=== PATIENT | male | born 1985 | race Caucasian/White ===

== ENCOUNTER 2018-12-15 11:55 | Observation (INO) | payer OTHER, SELFPAY ==
[2018-12-15 11:56] VITALS: BP 130/78; PULSE 101; RESP 18; TEMP 36.6; O2SAT 99; BMI 28.5
[2018-12-15] MEDS: Bupivacaine 0.5% PF 10 ML VIAL INFILT (12:05)
--- NOTE | 2018-12-15 12:13 | RAD_ITS ---
STUDY: X-RAY - LEFT HAND REASON FOR EXAM: Male, 33 years old. Laceration injury. TECHNIQUE: 3 view(s) of the hand. COMPARISON: None. FINDINGS: Normal radiocarpal articulation. Normal distal radioulnar joint. Normal visualized carpal bones. Normal carpal articulations Normal carpometacarpal articulation of the thumb. Normal second through fifth carpometacarpal joints. Normal metacarpi. Normal metacarpophalangeal joint of the thumb. Normal interphalangeal joint of the thumb. Normal proximal and distal phalanges of the thumb. Normal metacarpophalangeal joints of the second through fifth fingers. Normal proximal and distal interphalangeal joints of the second through fifth fingers. There has been amputation of distal pharynx of the third digit. Avulsion fracture of the tuft of the distal phalanx of the fourth digit. Soft tissue laceration. RAD/Hand Min 3 Views IMPRESSION: Amputation of the distal phalanx of the third digit with an avulsion fracture of the tuft of the circumference of the fourth digit with overlying soft tissue injury. Electronically Signed: Rob Marquez, at 12:46 EDT , Service support ,
[2018-12-15 12:22] LABS: Absolute Lymphocyte Count 1.51 X10^3/uL (0.83-4.51); Absolute Neutrophil Count 2.5 X10^3/uL (2.0-7.7); Basophil# 0.03 X10^3/uL; Basophil% 0.6 % (0-1); Eosinophil# 0.06 X10^3/uL; Eosinophils% 1.3 % (0-5); Hematocrit 41.7 % (40-54); Hemoglobin 14.1 g/dL (13.0-16.5); Lymphocyte # 1.51 X10^3/ul (4.0); Lymphocyte % 31.7 % (19-41); Mean Corp Hgb Conc 33.8 g/dL (32-36); Mean Corpuscular Hgb 30.5 pg (27.0-32.0); Mean Corpuscular Volume 90.1 fL (80-94); Mean Platelet Vol. 9.6 fl (6.2-12.0); Monocyte# 0.61 X10^3/uL; Monocyte% 12.8 % (0-10); NRBC Flagged by Analyzer 0 % (0-5); Neutrophil # 2.54 X10^3/uL (2.7-7.7); Neutrophil % 53.4 % (47-70); Platelet Count 218 K/mm3 (150-450); RBC Distribution Width CV 12.6 % (11.6-14.6); RBC Distribution Width SD 41.4 fl (35.1-43.9); Red Blood Count 4.63 M/mm3 (4.6-6.2); White Blood Count 4.8 K/mm3 (4.4-11.0)
[2018-12-15] MEDS: Diphth,Pertuss(Acell),Tet Vac 0.5 ML Vial IM (12:27)
[2018-12-15 12:32] LABS: Anion Gap 8 (5-15); BUN 12 mg/dL (7-18); BUN/Creat Ratio 12.2 RATIO (10-20); Calcium,Total 8.8 mg/dL (8.5-10.1); Chloride 102 mmol/L (98-107); Creatinine, Serum 0.99 mg/dL (0.70-1.30); EST Glomerular Filtration Rate 94 mL/min (>60); Est Glom Filt Rate - Afr Amer 113 mL/min (>60); Estimated Creatinine Clearance 115.15 ml/min; Glucose 96 mg/dL (74-106); Potassium 3.5 mmol/L (3.5-5.1); Sodium Level 137 mmol/L (136-145)
[2018-12-15] MEDS: Cefazolin 1 GM/50 ML BAG IV ×2 (12:52→21:08)
[2018-12-15 12:57] VITALS: BP 126/98; PULSE 114; RESP 16; O2SAT 99
[2018-12-15 13:13] VITALS: BMI 28.8; BMI 28.9
[2018-12-15 13:17] VITALS: BP 121/81; PULSE 60; RESP 16; TEMP 36.5; O2SAT 99
[2018-12-15 13:19] VITALS: BP 127/65
--- NOTE | 2018-12-15 13:38 | ED.VIS.UPPEX ---
History of Present Illness Chief Complaint: Laceration Narrative: Patient presenting secondary to a finger amputation. Patient was using a table saw when he suffered an injury to his left long digit and ring finger. He is right-hand dominant. Pain is moderate to severe worse with palpation. Bleeding was controlled with pressure and elevation. Tetanus status is unknown. Past Medical History - Allergies and Home Meds Allergies/Adverse Reactions: Allergies No Known Allergies Allergy (Verified 12/15/18 11:59) Past Medical History: None Smoking Status: Current every day smoker Review of Systems All systems negative except as indicated Skin: Reports: Wounds Physical Exam Vital Signs/Narrative: Vital Signs Temp Pulse Resp BP Pulse Ox 12/15/18 12:57 114 H 16 126/98 H 99 12/15/18 11:56 97.9 F 101 H 18 130/78 H 99 Left Hand: - - Examination of the patient's left hand demonstrates evidence of amputation of the distal portion of the long digit. The amputation goes up to the level of the DIP, but does not seem to include the DIP. Patient brought his amputated digit in a bag, and this seems to be consistent with the level of amputation on his hand. Over the ulnar portion of the patient's ring finger, there is skin avulsion of the fat pad with some exposed bone. Normal flexion and extension of the fingers. General: Well nourished, Well developed Head: Normocephalic, Atraumatic ENT: No Trauma, Moist Mucous Membranes Neck: Nontender, Full ROM Cardiovascular: Regular rate, Regular rhythm, No murmurs Respiratory: No distress, CTA bilaterally, Chest nontender Skin: Normal color, No rash Neurological: Alert, Oriented x3, Cranial nerves II-XII grossly intact, Normal Strength, Normal Sensation Psychological: Normal affect Diagnostic/Tx/Re-eval - Medical Decision Making Patient presented secondary to a finger amputation. Tetanus status was updated. I did a digital block on the patient's long and ring fingers using a total of 5 cc of bupivacaine for each finger. Finger tourniquet was placed on the patient's long digit, and it was irrigated and scrubbed. There appears to be some leftover proximal portion of the patient's distal phalanx. The wound on the patient's ring finger was also irrigated. Wet-to-dry dressings were placed over top of these by the nursing staff, and the tourniquet was released. X-rays obtained showed evidence that the patient has complete avulsion of the distal phalanx of the long digits with just a small portion of it being left over in the soft tissue. I discussed patient's case with plastic surgery, the patient will be admitted for revision amputation to be performed tomorrow. Disposition: Admit to Med Surg ED Disposition - Plan for ED Patient: Disposition: Acute Care Hospital [facility] Diagnosis: Partial traumatic transphalangeal amputation of finger
--- NOTE | 2018-12-15 15:34 | NURSING ---
Dr. 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 RN connected to physicians cell phone. No answer. Message left on physician cell phone with questions regarding room 110. Rn asking if Dr. Wei would be coming to see patient tonight, further orders for patient's amputated finger, and dressing concerns due to bleeding noted on current dressing. Return phone number of FLAKO Mckenzie taking over for this RN left on physician's voicemail to return call.
--- NOTE | 2018-12-15 16:23 | NURSING ---
This RN recieved bedside report from Makenzie Arredondo RN and will be taking over care for the pt at this time.
[2018-12-15 16:32] VITALS: BP 116/67; PULSE 53; RESP 16; TEMP 36.6; O2SAT 100
[2018-12-15 21:15] VITALS: BP 107/54; PULSE 72; RESP 18; TEMP 36.8; O2SAT 98
--- NOTE | 2018-12-15 21:42 | PCM.HP.STD ---
History of Present Illness Date of Admission: 12/15/18 Chief Complaint: Traumatic amputation left long finger. The patient is a 33 year old M who sustained a traumatic amputation left long finger earlier today from an oscillating table saw injury. He also sustained some soft tissue loss on the ulnar aspect left ring finger tip as well. He went to the ED for evaluation. An x-ray revealed the amputation left long finger through the DIP joint and a small avulsion fracture of the left ring finger. The wound left ring finger also involved the nail bed. The fingers were cleansed and dressed and he was started on IV antibiotics. He is being admitted today for continued IV antibiotics in anticipation for operative intervention with revision of his amputation. Patient is right hand dominant. Past Medical History Past Medical History (Chronic Problems): Chronic Problems Smoker (Chronic) Allergies No Known Allergies Allergy (Verified 12/15/18 11:59) Home Medications: Ambulatory Orders Medication Instructions Recorded Docusate Sodium [Colace] 100 mg PO BID #60 cap 12/16/18 Doxycycline 100 mg PO BID #30 cap 12/16/18 Oxycodone HCl/Acetaminophen 1 - 2 tab PO 4X/DAY PRN PRN 7 Days 12/16/18 [Percocet 5/325] #50 tab proMETHazine tablet [Phenergan 25 mg PO 4X/DAY PRN PRN #30 tab 12/16/18 tablet] Surgical History: no surgical history Psychiatric History: No pertinent psych hx Lives: With Family Smoking Status: Current every day smoker Tobacco Use: Cigarettes, Chew Alcohol: None Drugs: None - *Family History Maternal History Items: No pertinent history Review of Systems Constitutional: Denies: Chills, Fever, Fatigue Eyes: Denies: Pain HEENT: Denies: Nasal Congestion, Sore Throat Cardiovascular: Denies: Chest Pain Respiratory: Reports: - - patient is a smoker.. Denies: Cough, Shortness of Breath Gastrointestinal: Denies: Constipation, Diarrhea, Nausea, Vomiting Genitourinary: Denies: Frequency, Hematuria Musculoskeletal: Reports: Hand Pain - has left long finger and left ring finger pain from recent amputation left long finger and soft tissue injury left ring finger tip from an oscillating table saw injury.. Denies: Back Pain, Leg Pain, Muscle pain, Neck Pain Skin: Reports: Wounds - there is an open wound left long finger through the DIP joint. there is an open wound left ring finger on the ulnar aspect. Bone is palpable. Neurological: Denies: Headaches Psychiatric: Denies: Anxiety, Depression Endocrine: Denies: Polydipsia, Polyuria Hematologic/ Lymphatic: Denies: Easy Bruising, Hx of blood clot VTE Information - Inpt Only VTE Present on Admission: No VTE Mechan Device Prophylaxis: SCD's VTE Pharm Prophylaxis ordered?: No - Physical Exam General: Alert, Oriented x3 HEENT: PERRLA, EOMI Oral: Moist Mucosa Neck: Supple Lungs: Clear to auscultation Cardiovascular: Regular rate, Regular Rhythm Abdomen: Soft, Non-Distended Extremities: No clubbing, No cyanosis, Edema - mild edema left hand., Peripheral Pulses Normal Skin: Ulcer/ Wound - on the left long finger is a traumatic amputation at the level of the DIP joint. It was also noted on the dorsum left long finger at the PIP joint is a horizontal laceration into the subcutaneous tissue (zone 3). Measures 1.5 cm. on the left ring finger is a soft tissue wound on the ulnar aspect. Bone is palpable. It involves the distal ulnar aspect of the nail bed. Fingers are warm with good capillary refill. Radial pulses are present. No axillary adenopathy. Patient is right hand dominant. Lymphatic: - - no axillary adenopathy. Neurological: Cranial nerves II-XII grossly intact Psych/Mental Status: Normal Affect, Appropriate Vital Signs Temp Pulse Resp BP Pulse Ox 98.2 F 72 18 107/54 L 98 12/15/18 21:15 12/15/18 21:15 12/15/18 21:15 12/15/18 21:15 12/15/18 21:15 Oxygen Delivery Method Room Air Weight: 207 lb Body Mass Index (BMI) 28.8 Intake and Output for Last 24 Hours 12/13/18 12/14/18 12/15/18 23:59 23:59 23:59 Intake Total 450 / 450 Balance 450 / 450 Laboratory Tests Past 24 Hrs 12/15/18 12/15/18 12:15 12:15 WBC 4.8 RBC 4.63 Hgb 14.1 Hct 41.7 MCV 90.1 MCH 30.5 MCHC 33.8 RDW Std Deviation 41.4 RDW Coeff of Joe 12.6 Plt Count 218 MPV 9.6 Immature Gran % (Auto) 0.200 Neut % (Auto) 53.4 Lymph % (Auto) 31.7 [place] % (Auto) 12.8 H Eos % (Auto) 1.3 Baso % (Auto) 0.6 Absolute Neuts (auto) 2.5 Absolute Lymphs (auto) 1.51 Nucleated RBC % 0 Sodium 137 Potassium 3.5 Chloride 102 Carbon Dioxide 27.0 Anion Gap 8 BUN 12 Creatinine 0.99 Estim Creat Clear Calc 115.15 Est GFR (MDRD) Af Amer 113 Est GFR (MDRD) Non-Af 94 BUN/Creatinine Ratio 12.2 Glucose 96 Calcium 8.8 Diagnostic Data Hand X-Ray 12/15/18 12:13 IMPRESSION: Amputation of the distal phalanx of the third digit with an avulsion fracture of the tuft of the circumference of the fourth digit with overlying soft tissue injury. 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 Transphalangeal amputation left long finger through the DIP joint. 2. Soft tissue injury ulnar aspect left ring finger involving the nail bed with bone palpable. 3. Avulsion fracture distal phalanx tuft left ring finger. 4. 1.5 cm horizontal laceration dorsum left long finger at PIP joint (zone 3). 5. Smoker. X-ray reviewed. It showed an amputation of the distal phalanx of the third digit with an avulsion fracture of the tuft of the circumference of the fourth digit with overlying soft tissue injury. Recommend admission to the hospital and starting IV antibiotics with Ancef. Keep left hand elevated. Tomorrow will proceed with operative intervention under general anesthesia and digital tourniquet control with debridement and revision amputation left long finger. Will also debride the left ring fingertip wound along with palpable bone. May leave the wound open and pack with a Silver dressing daily or close the wound with sutures. Will explore the laceration dorsum left long finger at PIP joint (zone 3) to look for an extensor tendon injury. If injured, it will be repaired. Will send tissue to Pathology for analysis and to Microbiology for culture. A positive culture will necessitate antibiotic therapy. Will remove the sutures in 2-3 weeks. Patient was informed of the risks and complications of the procedure including alternatives to surgery. These were discussed with the patient personally. Patient voices understanding and wishes to proceed. Some of the risks and complications that were discussed included but were not inclusive of failure to diagnose including symptom relief, pain, infection, numbness, stiffness, loss of digit, RSD (CRPS), need for further surgery, contracture, and wound healing problems. Encouraged patient to stop smoking as it may have deleterious effects on wound healing. Code Visit Inpatient E&M: 88699 Init Hosp L2 - ICD-10 - S68.613A, S61.213A, S61.305A, S62.635B, F17.200
[2018-12-15] MEDS: oxyCODONE 5 MG Tablet 10 MG PO (23:26)
[2018-12-16] VITALS (9 sets, daily range): BP systolic 93–120; BP diastolic 42–76; PULSE 60–81; RESP 14–196; TEMP 36.4–36.7; O2SAT 93–100; BMI 28.8
[2018-12-16] MEDS: Cefazolin 1 GM/50 ML BAG IV ×2 (05:20→13:55)
[2018-12-16] MEDS: HYDROmorphone 1 MG/ML Syringe IV (09:42)
[2018-12-16] MEDS: 0.9% NaCl Peripheral Flush Adult/Peds IV (09:42)
--- NOTE | 2018-12-16 11:09 | NURSING ---
Report called to Leia ARRIOLA.
--- NOTE | 2018-12-16 13:00 | BON_PTH ---
PATIENT: GLENNA GALARZA LOC: [facility] U#:[id number] AGE/SX: 33/M ROOM: [facility] RE12/15/[address]: Dr. Pancho Wei MD : 1985 BED: 1 DIS: 12/16/2018 SPEC #: [id number] RECD: 12/16/18 14:25 STATUS: CECILIO JONATHAN #: [id number] SOO: 12/16/18 13:[address]: Pancho Wei DEPT: SURGICAL PATHOLOGY RECD BY: Adolph Holley ENTERED: 12/19/18 08:31 SP TYPE: Bone OTHR DR: Dr. Amadeo Flanagan MD No Primary Care Phys Tissues: A - Bone of hand, NOS B - TISSUE SURGICALLY REMOVED C - Bone of hand, NOS Procedures: Decalcification bone/plaque Surgery Specimen Level III HEADER OPERATION: Revision amputation left long finger, thru mid phalanx PRE-OP DIAGNOSIS: Traumatic amputation left long finger, laceration dorsum left long finger at dip join zone 3, open wound left ring finger tip involving nail and association avulsion fracture TISSUE SUBMITTED: A. Bone, left long finger, B. Soft tissue, left long finger, C. Bone, left ring finger MICROSCOPIC DIAGNOSIS A. Bone, left long finger: A piece of bone with reactive changes. B. Soft tissue, left long finger: Focal ulceration and associated acute inflammation and reactive changes. C. Bone, left ring finger: Pieces of bone with attached soft tissue with reactive changes and hemorrhage. SHILOH:rosas 12/22/18 MICROSCOPIC DESCRIPTION Slides are reviewed. GROSS DESCRIPTION A - Received in fixative is one container labeled with the patient's name and designated bone left long finger. The specimen consists of a piece of bone measuring 1.2 x 1 x 0.5 cm. The entire specimen is submitted in one cassette after decalcification. B - Received in fixative is one container labeled with the patient's name and designated soft tissue left long finger. The specimen consists of a portion of finger measuring 2.3 x 2 x 1 cm. A focal area of hemorrhage and ulceration is noted. Computer Laboratory Technician sections are submitted in one cassette. C - Received in fixative is one container labeled with the patient's name and designated bone left ring finger. The specimen consists of two pieces of bone measuring in aggregate 0.4 x 0.2 x 0.2 cm. The entire specimen is submitted in one cassette after short decalcification. / SHILOH:rosas 12/19/18 TC:2 CPT:69595 x3, 51773 x2
--- NOTE | 2018-12-16 13:26 | CASEMGMT ---
Pt is listed as self pay. SW did call the financial dept, message left. SW reviewed financial notes, the notes state that pt is trying to get information for the [facility] Workers [employer]. SW is available should any social service needs arise. DANIA Weiss
[2018-12-16] MEDS: Mupirocin Ointment 22gm Tube 1 APPLIC (15:20)
--- NOTE | 2018-12-16 15:20 | PCM.OPRPT ---
Report of Operation Date of Procedure: 12/16/18 Pre-Operative Diagnosis: 1. Transphalangeal amputation left long finger through the DIP joint. 2. Soft tissue injury ulnar aspect left ring finger involving the nail bed with bone palpable. 3. Avulsion fracture distal phalanx tuft left ring finger. 4. 1.5 cm horizontal laceration dorsum left long finger at PIP joint (zone 3). 5. Smoker. Post-Operative Diagnosis: Same. Surgery/Procedure Performed:: 1. Revision amputation left long finger through middle phalanx. 2. Exploration laceration dorsum left long finger at PIP joint (zone 3) with 3 cm complex closure. 3. Excisional debridement open wound ulnar aspect left ring finger involving nail with nailbed injury and avulsion fracture tuft distal phalanx with 1.5 cm complex closure. Description of Surgical Findings:: The patient is a 33 year old M who sustained a traumatic amputation left long finger earlier today from an oscillating table saw injury. He also sustained some soft tissue loss on the ulnar aspect left ring finger tip as well. He went to the ED for evaluation. An x-ray revealed the amputation left long finger through the DIP joint and a small avulsion fracture of the left ring finger. The wound left ring finger also involved the nail bed. The fingers were cleansed and dressed and he was started on IV antibiotics. He is being admitted today for continued IV antibiotics in anticipation for operative intervention with revision of his amputation. Patient is right hand dominant. Patient was informed of the risks and complications of the procedure including alternatives to surgery. These were discussed with the patient personally. Patient voices understanding and wishes to proceed. Some of the risks and complications that were discussed included but were not inclusive of failure to diagnose including symptom relief, pain, infection, numbness, stiffness, loss of digit, RSD (CRPS), need for further surgery, contracture, and wound healing problems. Encouraged patient to stop smoking as it may have deleterious effects on wound healing. Total tourniquet time, left long finger - 57 minutes. Total tourniquet time, left ring finger - 48 minutes. stucco applicator: None Type of Anesthesia:: General Specimen's removed: 1. Amputation left long finger soft tissue to Pathology and Microbiology. 2. Amputation left long finger bone to Pathology and Microbiology. 3. Left ring finger soft tissue to Microbiology. 4. Left ring finger bone to Pathology and Microbiology. Drains: None. Estimated Blood Loss (mL): 15 ml. Description of Procedure: Patient was taken to OR in supine position and was placed under general anesthesia. The left hand was prepped and draped in the usual fashion. SCD's were placed for DVT prophylaxis. Perioperative antibiotics were given intravenously. A digital tourniquet was placed at the base of the left long finger. 10 minutes later I placed a digital tourniquet at the base of the left ring finger as there was continued oozing from the wound. I made incisions on the dorsum and volar side of the left long finger and created skin flaps. There is not enough soft tissue present to close the amputation defect without shortening the bone. I freed up the distal portion of the middle phalanx with periosteal elevators. Using an oscillating saw, I excised the mid portion of the middle phalanx in a horizontal fashion. I then used a rasp to smooth out the bony edges. I dissected the radial and ulnar digital nerves and placed them on stretch and excised them and allowed the proximal aspect of the nerves to retract to minimize neuroma formation at the stump. The wound was irrigated with saline. I was able to bring the skin flaps together and closed the amputation stump with 5-0 Monocryl interrupted sutures for the deep dermis and subcutaneous tissue. The skin was approximated with 5-0 Nylon simple interrupted sutures. Half the soft tissue and half the bone was sent to Pathology for analysis to evaluate for osteomyelitis. Half the soft tissue and half the bone was sent to Microbiology for culture. A positive culture will necessitate antibiotic therapy. I then explored the laceration on the dorsum of the left long finger at the PIP joint (zone 3) by extending the incision proximally in a longitudinal fashion. I created a skin flap at the level of the extensor tendon. The extensor tendon appeared intact with no evidence of injury at the PIP joint. The wound was irrigated with saline. The length of the wound for complex closure was 3 cm. Wound closure was obtained with 5-0 Nylon simple interrupted sutures. The tourniquet was released after 57 minutes. No vascular compromise was noted on the skin flaps. I then addressed the left ring finger. There was some palpable bone at the base of the wound that was sharply debrided with a rongeur which will help with wound closure. The bone will be sent to Pathology and Microbiology for culture. There was a nail bed injury involving the distal ulnar aspect of the nail. I debrided some of the wound edges. The soft tissue will be sent to Microbiology for culture. A positive culture will necessitate antibiotic therapy. I was able to approximate the volar skin flap to the nail bed wound edge with 5-0 Monocryl simple interrupted sutures. The length of the wound for complex closure was 1.5 cm. Prior to wound closure, I irrigated the wound with saline. Minimal tension was seen. Some deformity was noted at the tip of the finger, but it should remodel with time. The patient will be better off with a slightly deformed full length finger tip as opposed to shortening the finger with a revision amputation or trying to maintain length with a local skin flap or cross finger flap that would necessitate a second procedure 3 weeks later. Preoperatively, the patient was not interested in a two stage procedure. So today if the wound could not be closed, I would pack the wound with a Silver dressing and allow healing to occur. If healing problems occur or if osteomyelitis develops then can proceed in the future with a revision amputation at that time. The tourniquet was released after 48 minutes. Bactroban ointment was applied to the suture lines followed by Xeroform gauze and 2x2 gauze. This was followed by a 2 inch Arlyn compression wrap. I then placed a local digital metacarpal block to both the left long finger and the left ring ringer with xylocaine with epinephrine to help with postoperative pain relief. Grafts/Implants Used: None. - Complications None. - Admit VTE Documentation VTE Present on Admission: No VTE Mechan Device Prophylaxis: SCD's VTE Pharm Prophylaxis ordered?: No Code Visit Surgery Charges CPT - 43608 ICD-10 - W31.2xxA, S68.613A, F17.200 42796 W31.2xxA, S61.213A, F17.200 31940 W31.2xxA, S62.635B, S61.305A, F17.200
--- NOTE | 2018-12-16 15:32 | DCINST_ITS ---
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 no heavy lifting. May shower in (days): 1 - wear plastic bag over left hand when showering. May resume sexual activity in: No Restrictions Weight Bearing Status: Weight bearing as tolerated Lifting Restrictions: 10 lbs with left hand. Keep extremity elevated above heart level: Left Arm Call your doctor if your incision/area has: Continuous Slow Oozing, Sudden Increased Bleeding, Increased Pain/ Swelling, Increased Redness, Foul Smelling Discharge, Swelling at the incision site Call your doctor if you observe: Fever of 101 or Higher, Coldness, Increased Pain, Shortness of breath, Chest pain, Calf discomfort, Uncontrolled pain Suture Line Care: - - after operative dressing removed in office, apply antibiotic ointment to suture iines daily. Change Dressing in (Days):: 7 - will remove in office. Cleanse incision/area with: - - wear plastic bag over left hand when showering. Allergies/Adverse Reactions: Allergies No Known Allergies Allergy (Verified 12/15/18 11:59) Medications to take at Discharge Docusate Sodium [Colace] 100 mg PO BID #60 cap 12/16/18 Doxycycline 100 mg PO BID #30 cap 12/16/18 Oxycodone HCl/Acetaminophen [Percocet 5/325] 1 - 2 tab PO 4X/DAY PRN PRN 7 Days #50 tab 12/16/18 proMETHazine tablet [Phenergan tablet] 25 mg PO 4X/DAY PRN PRN #30 tab 12/16/18 The following prescriptions were given: Docusate Sodium [Colace] 100 mg PO BID #60 cap Prescription Printed Doxycycline 100 mg PO BID #30 cap Prescription Printed Oxycodone HCl/Acetaminophen [Percocet 5/325] 1 - 2 tab PO 4X/DAY PRN PRN 7 Days #50 tab PRN Reason: Pain Prescription Printed proMETHazine tablet [Phenergan tablet] 25 mg PO 4X/DAY PRN PRN #30 tab PRN Reason: Nausea Prescription Printed Primary Care Physician: Care Physician,No Primary [Primary Care Provider] - Test Results: Test results from this visit will be discussed in further detail at your follow- up appointment, if applicable. Please Follow Up With: Pancho Wei MD When: one week. call [phone] for appt. Proposed Discharge Date: 12/16/18
[2018-12-16] MEDS: oxyCODONE 5 MG Tablet 10 MG PO (16:30)
[2018-12-16] MEDS: Docusate Sodium 100 MG Capsule PO (16:30)
== END 2018-12-16 15:35 | disposition home or self-care (01) ==
LOC: ED 12:53 → PCU 13:17
PROVIDERS: Admitting Provider Surgery; Emergency Provider Emergency Medicine; Referring Provider Hospitalist; Visit Provider Surgery
PROC: (CPT 13132; principal; 2018-12-16 12:45)
DX: S68.613A Complete traumatic transphalangeal amputation of left middle finger, initial encounter (principal); S62.635B Displaced fracture of distal phalanx of left ring finger, initial encounter for open fracture; W29.8XXA Contact with other powered hand tools and household machinery, initial encounter; Y93.9 Activity, unspecified; Y92.9 Unspecified place or not applicable; Y99.9 Unspecified external cause status; Z23 Encounter for immunization; F17.210 Nicotine dependence, cigarettes, uncomplicated; F17.220 Nicotine dependence, chewing tobacco, uncomplicated
CPT/HCPCS: 01830; 13132; 26236; 26951; 73130; 80048; 85025; 87070; 87075; 87077; 87176; 87186; 87205; 88304; 88311; 90715; 96365; 96366; 96375; 99218; 99284; J7030; A4216; G0378; J2405

== ENCOUNTER 2021-09-19 14:50 | Emergency (ER) | payer OTHER, SELFPAY ==
[2021-09-19 14:51] VITALS: BP 142/94; PULSE 95; RESP 16; TEMP 36.8; O2SAT 96; BMI 31.4
--- NOTE | 2021-09-19 15:02 | RAD_ITS ---
STUDY: X-RAY - LEFT HAND REASON FOR EXAM: Male, 36 years old. 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 COMPARISON: Left hand x-ray dated December 15, 2018 FINDINGS: A small acute linear fracture seen through the tip of the head of the distal phalanx of the thumb with overlying laceration and subcutaneous air and swelling and irregularity of the soft tissues in the nailbed region. No additional acute fractures are present. Prior amputation of the distal half of the middle phalanges of the third digit and distal phalanx of the third digit. Healed fracture deformity at the head of the distal phalanx of the fourth digit. Normal radiocarpal articulation. Normal distal radioulnar joint. Normal visualized carpal bones. Normal carpal articulations Normal carpometacarpal articulation of the thumb. Normal second through fifth carpometacarpal joints. Normal remaining metacarpi. Normal metacarpophalangeal joint of the thumb. Normal interphalangeal joint of the thumb. Normal proximal phalanx of of the thumb. Normal metacarpophalangeal joints of the second through fifth fingers. Normal proximal and distal interphalangeal joints of the second through fifth fingers. Normal phalanges of the second through fifth fingers. RAD/Hand Min 3 Views IMPRESSION: 1. A small acute linear fracture seen through the tip of the head of the distal phalanx of the thumb with overlying laceration and subcutaneous air and swelling and irregularity of the soft tissues in the nailbed region. No additional acute fractures are present. Electronically Signed: Eagle Maxwell MD at 15:28 EDT ,
--- NOTE | 2021-09-19 15:23 | ED.RN ---
placed hand in soapy water to soak
--- NOTE | 2021-09-19 15:46 | EDS_ITS ---
HPI <FILOMENA Hugo - Last Filed: 09/19/21 15:54> History of Present Illness Chief Complaint: Laceration Narrative Narrative: 36-year-old male with no significant medical history presents the emergency department with a injury to the left thumb. Patient was working in the wood shop, a bit slipped, striking his tip of the left finger. Patient states that part of the nail is gone, as part of some of the skin. Patient tetanus is up-to-date. 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 Patient denies any other injury PFSH <FILOMENA Hugo - Last Filed: 09/19/21 15:54> [facility] Medical History (Updated 09/19/21 @ 15:52 by FILOMENA Hugo) Bone fracture Seasonal allergies Home Medications doxycycline monohydrate 100 mg PO BID #30 cap 12/16/18 [Rx Last Taken Unknown] promethazine 25 mg PO 4X/DAY PRN PRN #30 tab 12/16/18 [Rx Last Taken Unknown] ibuprofen 200 mg capsule 200 mg PO Q6H 12/21/18 [History Last Taken Unknown] cephalexin 500 mg PO Q6 #40 cap 09/19/21 [Rx Last Taken Unknown] Allergy/AdvReac Type Severity Reaction Status Date / Time No Known Allergies Allergy Verified 09/19/21 14:51 Family History Grandmother Breast cancer Heart disease Grandfather Heart disease Social History (Updated 02/07/19 @ 11:08 by Hailee Harry NP, [facility]) Smoking Status: Never smoker counseling given: provider counseling and counseling >10 minutes alcohol intake: current substance use type: does not use additional social history: DOES NOT USE ASPIRIN DOES USE IBUPROFEN ROS <FILOMENA Hugo - Last Filed: 09/19/21 15:54> ROS ED ROS Narrative Constitutional: Negative for fever, chills, weight loss, weakness Eyes: Negative for vision loss, vision change, double vision ENT: Negative for any sore throat, ear pain, congestion Cardiovascular: Negative for any chest pain, tightness, palpitations Respiratory: Negative for any cough, sputum production, hemoptysis, dyspnea, dyspnea on exertion, orthopnea Gastrointestinal: Negative for any abdominal pain, nausea, vomiting, diarrhea, constipation, blood in stool, blood in vomit : Negative for any urinary frequency, dysuria, retention, blood in urine Muscle skeletal: Negative for any muscle joint pain, stiffness, myalgias, ar thralgias, neck pain, back pain. Positive for left thumb pain Neurological: Negative for any headache, syncope, numbness or tingling, dizziness Skin: Negative for any rashes, lumps, itching, abrasions, . Positive for laceration, avulsion to the tip of the left thumb Psychiatric: Negative for any depression, anxiety, stress, suicidal ideation, homicidal ideation Hematologic: Negative for any easy bruising, excessive bruising, easy bleeding Allergies: Negative for any eczema, hives, rash EXAM <FILOMENA Hugo - Last Filed: 09/19/21 15:54> Physical Exam Narrative Exam Narrative: Vital signs reviewed. Extremities: Patient has an avulsion like injury to the dorsal aspect of the left thumb. There is a medial area of the nail that is missing. Patient does have a laceration to the medial aspect. Patient is able to flex and extend the thumb. +2 radial pulses. There is no exposed bone. There is no laceration of the nailbed. Part of the nail is mostly intact, nailbed is intact.. Active full range of motion of all extremities. Neuro: Cranial nerves II through XII intact, no focal neurological deficits. Skin: Clean dry and intact with no rash, purpura, petechiae, vesicles or pustules. Backs/flank: No CVA tenderness, no midline spinal tenderness, no deformity. Psych: Normal mood and affect. No SI, HI or acute psychosis. Const Vital Signs: 09/19/21 14:51 Temperature 98.2 F Temperature Source Temporal Pulse Rate 95 Respiratory Rate 16 Blood Pressure 142/94 H Blood Pressure Mean 110 Pulse Ox 96 Oxygen Delivery Method Room Air <Dr. Navdeep Andre, DO - Last Filed: 09/19/21 18:23> Physical Exam Const Vital Signs: 09/19/21 14:51 Temperature 98.2 F Temperature Source Temporal Pulse Rate 95 Respiratory Rate 16 Blood Pressure 142/94 H Blood Pressure Mean 110 Pulse Ox 96 Oxygen Delivery Method Room Air MDM <FILOMENA Hugo - Last Filed: 09/19/21 15:54> [facility] Narrative Medical decision making narrative: Patient appears well, patient appears nontoxic, vital signs are stable. Patient presents to the emergency department with left thumb injury. Patient's left thumb injury was concerning for osseous injury. He does have a small acute linear fracture seen through the tip of the head of the distal phalanx of the thumb with overlying laceration and subcutaneous air and swelling and irregularity of the soft tissue. Patient's thumb was digitally blocked with lidocaine. It did soak in warm soapy water for 20 minutes. I irrigated the nail copiously with normal saline. I was able to clean the area, remove any slight of debris such as skin and nail that was not connected. Patient has what looks to be an avulsion measuring about 2 cm to the medial aspect of the nailbed. The actual root of the nail is intact, patient's tetanus is up-to-date. No sutures were needed. The patient was given 1 g of IM Ancef. Patient be given a tube gauze dressing, will follow-up with orthopedics. He is instructed to return for any worsening pain, fever chills, signs of flexion. He was placed on 10 days of Keflex. Stable for discharge instructed return for any worsening symptoms. Lab Data Attestation: I reviewed the patient's lab results. Radiography Diagnostic Testing: Clinical Impression(s) from Imaging Studies Hand X-Ray 09/19/21 15:02 IMPRESSION: 1. A small acute linear fracture seen through the tip of the head of the distal phalanx of the thumb with overlying laceration and subcutaneous air and swelling and irregularity of the soft tissues in the nailbed region. No additional acute fractures are present. Electronically Signed: Eagle Maxwell MD at 15:28 EDT , <Dr. Navdeep Andre, DO - Last Filed: 09/19/21 18:23> [facility] Narrative Medical decision making narrative: I have personally performed a face to face assessment of the patient and have reviewed the SOFY Note. I performed a substantive portion of the visit including all aspects of the following. My cazares findings include: History: Patient presents with laceration to his left thumb that occurred today. Patient was using a router when it kicked and cut his left thumb. Patient states the bleeding has been persistent. Patient states his last tetanus was within the last 5 years. Patient denies any fevers or chills. Patient denies any other injuries. Exam: Vital signs are stable. Patient is in no acute distress. Skin is warm and dry. There is bleeding from the tip of the left thumb. There is some laceration of the nail plate. There are no foreign bodies. There is tenderness over the distal phalanx of the left thumb. There is good range of motion the IP and MP joints. Sensation was intact to light touch in all digits. Capillary refill is less than 2 seconds in all digits. Medical Decision Making: X-rays of the left hand were obtained. There are 3 views. On my interpretation, there is a small linear fracture through the distal tip of the distal phalanx of the left thumb. There are no foreign bodies noted. There is no dislocation noted. Radiologist also interpreted the x-rays and agrees. The wound was cleaned and dressed with a bacitracin dressing. Patient was given a dose of Ancef here. Patient was given a prescription for Keflex. Patient was instructed to follow-up with his primary care physician in 5 to 7 days. Patient understood and was agreeable with the plan. All questions were answered. Radiography Diagnostic Testing: Clinical Impression(s) from Imaging Studies Hand X-Ray 09/19/21 15:02 IMPRESSION: 1. A small acute linear fracture seen through the tip of the head of the distal phalanx of the thumb with overlying laceration and subcutaneous air and swelling and irregularity of the soft tissues in the nailbed region. No additional acute fractures are present. Electronically Signed: Eagle Maxwell MD at 15:28 EDT , Discharge Plan Triage Chief Complaint: Laceration ED Midlevel Provider: Dave Kemp ED Provider: Navdeep Andre Dx/Rx/DC Orders Clinical Impression: Open fracture of tuft of distal phalanx of finger Instructions: ED Fracture, Finger, Open, ED Open Hand Fracture (Adult) Prescriptions: New cephalexin 500 mg capsule 500 mg PO Q6 Qty: 40 RF: 0 No Action ibuprofen 200 mg capsule 200 mg PO Q6H RF: 0 doxycycline monohydrate 100 MG capsule 100 mg PO BID Qty: 30 RF: 2 promethazine 25 MG tablet 25 mg PO 4X/DAY PRN PRN (Reason: Nausea) Qty: 30 RF: 1 Primary Care Provider: Care Physician,No Primary Referrals: Parrish Sheldon MD [STAFF PHYSICIAN] - Care Physician,No Primary [Primary Care Provider] - Activity Restrictions/Additional Instructions: Please keep the wound clean and dry. Please take antibiotics until completion. Follow-up with orthopedics. Return for any signs or symptoms of infection. You do have a small fracture at the tip of your left thumb. Print Language: Welsh Disposition Disposition: Home, Self Care Discharge Date/Time: 09/19/21 16:29
[2021-09-19] MEDS: Lidocaine 1% (20 ml mdv) 20 ML Vial 3 ML INFILT (15:53)
[2021-09-19] MEDS: Cefazolin 1 GM/5 ML Vial IM (15:53)
== END 2021-09-19 16:29 | disposition home or self-care (01) ==
PROVIDERS: Emergency Provider Emergency Medicine; Visit Provider Emergency Medicine
DX: S62.522B Displaced fracture of distal phalanx of left thumb, initial encounter for open fracture (principal); W22.8XXA Striking against or struck by other objects, initial encounter; Y93.89 Activity, other specified; Y92.69 Other specified industrial and construction area as the place of occurrence of the external cause
CPT/HCPCS: 73130; 96372; 99285

== ENCOUNTER → 2023-08-30 | Outpatient (CLI) | payer SELFPAY, OTHER ==
--- NOTE | 2023-08-30 08:30 | MRI_ITS ---
STUDY: MRI BRAIN WITHOUT CONTRAST REASON FOR EXAM: Male, 38 years old. DIZZINESS AND GIDDINESS TECHNIQUE: Standardized multiplanar fat and water weighted pulse sequences were obtained. MRI examination brain obtained with standard protocol including multiplanar multiecho noncontrast imaging. Contrast: No contrast administered. COMPARISON: No relevant prior comparison study available HEMISPHERES, CEREBELLUM AND BRAINSTEM: 1. The cerebral parenchyma, ventricular system, subarachnoid spaces have normal configuration and density. There is a normal gyral pattern. There is normal gar/white differentiation. No midline shift.. 2. There is however focal area of cortical loss along the lateral aspect of the RIGHT middle temporal gyrus, measuring approximately 5 x 7 x 9 mm (series 9: Image 11, series 11: Image 14, series 4: Image 28). 3. No areas of fluid restriction or acute ischemic change. No areas of intraparenchymal hemorrhage. 4. Hemispheric white matter has normal appearance. 5. The hemispheric white matter has normal appearance. 6. No intraparenchymal mass, hemorrhage, or acute territorial infarct. 7. The cerebellum, brainstem, basilar and suprasellar cisterns have normal appearance. No Chiari malformation. PITUITARY: Infundibulum and pituitary have normal configuration. Midline structures appear normal. CSF SPACES: Appropriate for age. No hydrocephalus. Basal cisterns are patent. VESSELS: 1. There are normal flow voids noted in the great vessels at the skull base ORBITS AND PARANASAL SINUSES: 1. Both globes, extraocular muscles, optic nerves and retrobulbar fat appear unremarkable. 2. Paranasal sinuses are clear. BONY ELEMENTS: Bony elements of the cranial vault, facial skeleton and skull base have normal appearance. SCALP AND SOFT TISSUES: Normal appearance of the soft tissues of the scalp and the visualized face OTHER: None MRI/Brain without Contrast IMPRESSION: 1. No intraparenchymal mass, hemorrhage, or acute territorial infarct. 2. Focal area of cortical loss along the lateral aspect of the RIGHT middle temporal gyrus. No associated gliosis. This may represent a developmental variant/cortical hypoplasia or a focal area of remote infarct and encephalomalacic change. 3. No radiographically significant sinus disease. Electronically Signed: Emerson Wiggins MD at 0:09 EDT ,
== END | disposition home or self-care (01) ==
PROVIDERS: Referring Provider Family Medicine; Visit Provider Family Medicine
DX: R42 Dizziness and giddiness (principal)
CPT/HCPCS: 70551